=== PATIENT | male | born 1975 | race Caucasian/White ===

== ENCOUNTER 2017-10-24 15:54 | Emergency (ER) | payer MEDICARE, MEDICAID ==
[2017-10-24 16:44] LABS: BASO # 0.1 10^3/uL (0.0-0.2); BASO % 0.8 % (0.0-1.0); EOS # 0.2 10^3/uL (0.0-0.50); EOS % 2.9 % (0.0-3.0); HEMATOCRIT 43.7 % (42.0-52.0); HEMOGLOBIN 15.2 g/dl (13.5-17.5); IMMATURE GRANULOCYTE % 0.4 % (0-3.0); LYMPH # 1.9 10^3/uL (1.5-4.5); LYMPH % 22.9 % (24.0-44.0); MEAN CORPUSCULAR HEMOGLOBIN 31.5 pg (27.0-33.0); MEAN CORPUSCULAR HGB CONC 34.8 g/dl (32.0-36.5); MEAN CORPUSCULAR VOLUME 90.7 fl (80.0-96.0); MONO # 0.8 10^3/uL (0.0-0.8); MONO % 9.2 % (0.0-5.0); NEUTROPHILS # 5.3 10^3/uL (1.8-7.7); NEUTROPHILS % 63.8 % (36.0-66.0); PLATELET COUNT, AUTOMATED 286 10^3/uL (150-450); RED BLOOD COUNT 4.82 10^6/uL (4.30-6.10); RED CELL DISTRIBUTION WIDTH 12.5 % (11.5-14.5); WHITE BLOOD COUNT 8.3 10^3/uL (4.0-10.0)
[2017-10-24] MEDS: KETOROLAC 30 MG/ML VIAL (J1885) IV (16:47)
[2017-10-24] MEDS: NS 1,000 ML IV (16:48)
[2017-10-24 17:05] LABS: ALBUMIN/GLOBULIN RATIO 1.05 (1.00-1.93); ALKALINE PHOSPHATASE 54 U/L (45-117); ALT/SGPT 30 U/L (12-78); ANION GAP 7 MEQ/L (8-16); AST/SGOT 15 U/L (7-37); BILIRUBIN,DIRECT 0.1 MG/DL (0.0-0.2); BILIRUBIN,TOTAL 0.6 MG/DL (0.2-1.0); BLOOD UREA NITROGEN 13 MG/DL (7-18); C REACTIVE PROTEIN QUANTITATIV < 0.30 MG/DL (0.00-0.30); CARBON DIOXIDE LEVEL 27 MEQ/L (21-32); CHLORIDE LEVEL 110 MEQ/L (98-107); CPK CREATINE PHOSPHOKINASE 66 U/L (39-308); CREATININE FOR GFR 1.31 MG/DL (0.70-1.30); GLOMERULAR FILTRATION RATE > 60.0 (>60); GLUCOSE, FASTING 116 MG/DL (70-100); LIPASE 161 U/L (73-393); POTASSIUM SERUM 3.8 MEQ/L (3.5-5.1); SODIUM LEVEL 144 MEQ/L (136-145); TOTAL PROTEIN 7.8 GM/DL (6.4-8.2); TROPONIN I < 0.02 NG/ML (< 0.10)
[2017-10-24 17:11] LABS: CK-MB VALUE MASS < 1.0 NG/ML (<3.6); MB/CK RELATIVE INDEX 1.51 (< OR =4)
[2017-10-24] MEDS: predniSONE 20 MG TAB PO (18:45)
== END 2017-10-24 19:16 | disposition home or self-care (01) ==
LOC: M ED 15:54
DX: J01.10 Acute frontal sinusitis, unspecified (principal); I67.82 Cerebral ischemia; I45.10 Unspecified right bundle-branch block; I10 Essential (primary) hypertension; J44.9 Chronic obstructive pulmonary disease, unspecified; K21.9 Gastro-esophageal reflux disease without esophagitis; Z87.828 Personal history of other (healed) physical injury and trauma; Z79.899 Other long term (current) drug therapy; Z88.5 Allergy status to narcotic agent
CPT/HCPCS: J1885

== ENCOUNTER 2018-01-17 18:29 | Emergency (ER) | payer MEDICARE, MEDICAID | END 2018-01-17 19:41 | disposition home or self-care (01) | LOC: M ED 18:29 | DX: K21.0 Gastro-esophageal reflux disease with esophagitis (principal); G89.29 Other chronic pain; I10 Essential (primary) hypertension; I25.2 Old myocardial infarction; J44.9 Chronic obstructive pulmonary disease, unspecified; Z87.891 Personal history of nicotine dependence; Z98.890 Other specified postprocedural states; Z87.820 Personal history of traumatic brain injury; Z88.5 Allergy status to narcotic agent | CPT/HCPCS: 99282 ==

== ENCOUNTER 2018-05-28 15:04 | Emergency (ER) | payer MEDICARE, MEDICAID ==
[2018-05-28 16:10] LABS: HEMATOCRIT 45.5 % (42.0-52.0); HEMOGLOBIN 14.8 g/dl (13.5-17.5); MEAN CORPUSCULAR HEMOGLOBIN 30.3 pg (27.0-33.0); MEAN CORPUSCULAR HGB CONC 32.5 g/dl (32.0-36.5); PLATELET COUNT, AUTOMATED 308 10^3/uL (150-450); RED BLOOD COUNT 4.89 10^6/uL (4.30-6.10); RED CELL DISTRIBUTION WIDTH 12.7 % (11.5-14.5); WHITE BLOOD COUNT 8.7 10^3/uL (4.0-10.0)
[2018-05-28 16:15] LABS: AMORPHOUS SEDIMENT RFX SMALL (NEGATIVE); KETONE, URINE AUTO RFX NEGATIVE (NEGATIVE); LEUKOCYTE ESTERASE UR AUTO RFX NEGATIVE (NEGATIVE); NITRITE, URINE AUTO RFX NEGATIVE (NEGATIVE); RBC, URINE AUTO RFX 0 /HPF (0-3); SPECIFIC GRAVITY UR AUTO RFX 1.019 (1.002-1.035); SQUAM EPITHELIAL CELL UR AURFX 0 /HPF (0-6); WBC, URINE AUTO RFX 0 /HPF (0-3)
[2018-05-28 16:31] LABS: ALBUMIN 3.9 GM/DL (3.2-5.2); ALBUMIN/GLOBULIN RATIO 1.08 (1.00-1.93); ALKALINE PHOSPHATASE 48 U/L (45-117); ALT/SGPT 24 U/L (12-78); ANION GAP 6 MEQ/L (8-16); AST/SGOT 16 U/L (7-37); BILIRUBIN,TOTAL 0.5 MG/DL (0.2-1.0); BLOOD UREA NITROGEN 13 MG/DL (7-18); CALCIUM LEVEL 8.6 MG/DL (8.5-10.1); CARBON DIOXIDE LEVEL 29 MEQ/L (21-32); CHLORIDE LEVEL 107 MEQ/L (98-107); CREATININE FOR GFR 1.11 MG/DL (0.70-1.30); GLOMERULAR FILTRATION RATE > 60.0 (>60); GLUCOSE, FASTING 96 MG/DL (70-100); POTASSIUM SERUM 4.7 MEQ/L (3.5-5.1); SODIUM LEVEL 142 MEQ/L (136-145); TOTAL PROTEIN 7.5 GM/DL (6.4-8.2)
[2018-05-28 18:54] LABS: CHLAMYDIA DNA AMPLIFICATION NEGATIVE (NEGATIVE); GC DNA AMPLIFICATION NEGATIVE (NEGATIVE)
[2018-05-29 09:41] LABS: HEPATITIS B SURFACE ANTIBODY NEGATIVE (POSITIVE)
[2018-05-29 09:52] LABS: HEPATITIS B SURFACE ANTIGEN NEGATIVE (NEGATIVE)
[2018-05-29 10:21] LABS: HIV 1&2 SCREEN CENTAUR NEGATIVE (NEGATIVE)
[2018-05-29 10:57] LABS: HEPATITIS C VIRUS ABY INDEX > 11.0 INDEX (<0.8)
[2018-06-01 08:09] LABS: HCV RNA NAA QUALITATIVE Negative (Negative)
== END 2018-05-28 17:41 | disposition home or self-care (01) ==
LOC: M ED 15:04
DX: L25.9 Unspecified contact dermatitis, unspecified cause (principal); R42 Dizziness and giddiness; I25.2 Old myocardial infarction; I10 Essential (primary) hypertension; Z87.820 Personal history of traumatic brain injury; J44.9 Chronic obstructive pulmonary disease, unspecified; K21.9 Gastro-esophageal reflux disease without esophagitis; F32.9 Major depressive disorder, single episode, unspecified; Z87.891 Personal history of nicotine dependence; Z79.899 Other long term (current) drug therapy; Z88.5 Allergy status to narcotic agent; Z11.3 Encounter for screening for infections with a predominantly sexual mode of transmission; Z72.89 Other problems related to lifestyle
CPT/HCPCS: 80053

== ENCOUNTER → 2018-09-24 | Outpatient (CLI) | payer MEDICARE, MEDICAID ==
[~2018-09-24] MED LIST: ADV250INH INH; ALBU17IN2 INH; AZEL1SPR3; CLAR5TAB7 PO; IBUP-1114 PO; LOSA100T50 PO; PERC5TAB12 PO; PRED20TA PO; PROT1TAB2 PO
--- NOTE | 2018-09-24 14:24 | REP ---
TWO-VIEW CHEST: REASON: COPD. COMPARISON: 12/30/2013, a portable exam. FINDINGS: The superior mediastinal structures are midline. The cardiac silhouette is unremarkable in size, shape, and position. The diaphragmatic surfaces of the lungs are regular, and the costophrenic angles are clear. The pulmonary delacruz are clear. The imaged osseous structures are intact. IMPRESSION: There is no acute cardiopulmonary disease. Electronically Signed by Ramon Shelby DO 09/24/2018 03:49 P
--- NOTE | 2018-09-24 14:53 | REP ---
REASON: Chronic back pain. COMPARISON: None. FINDINGS: Three views of the sacroiliac joints show them to be non-fused. There is no lysis or sclerosis of either the sacral or iliac side of either SI joints. There is no evidence of whiskering. There is no prominent osteophytosis. IMPRESSION: SI joints within normal limits. Electronically Signed by Ramon Shelby DO 09/24/2018 03:57 P
--- NOTE | 2018-09-24 14:56 | REP ---
REASON: Chronic pain. FINDINGS: No acute fracture or destructive osseous lesion. Electronically Signed by Ramon Shelby DO 09/24/2018 03:58 P
--- NOTE | 2018-09-24 15:01 | REP ---
REASON: Chronic low back pain. COMPARISON: 05/30/2016. There is posterior disc space narrowing at every level status quo. Minimal grade 1 L4 upon L5 spondylolisthesis is again noted with L4 spondylolysis bilaterally again unchanged. The pedicles are intact bilaterally. There has been no acute change from the prior exam. IMPRESSION: Chronic changes as described above. Electronically Signed by Ramon Shelby DO 09/24/2018 04:04 P
--- NOTE | 2018-09-24 15:19 | REP ---
REASON: Back pain. COMPARISON: None. There is evidence of a biconcave endplate deformity seen involving T9 with a mild superior endplate concave deformity involving T8 and T10. Minimal anterior lipping is seen involving all thoracic levels with anterior disc space narrowing. Vertebral body alignment is within normal limits. The pedicles appear to be intact bilaterally. IMPRESSION: Findings as described above. Correlate clinically. Electronically Signed by Ramon Shelby DO 09/24/2018 04:07 P
== END ==
LOC: M RAD 13:15
PROVIDERS: ATTEND Family Medicine
DX: Z87.09 Personal history of other diseases of the respiratory system (principal); M43.16 Spondylolisthesis, lumbar region; M51.34 Other intervertebral disc degeneration, thoracic region

== ENCOUNTER → 2018-10-01 | Outpatient (CLI) | payer MEDICARE, MEDICAID ==
[2018-10-01 11:10] LABS: APPEARANCE, URINE CLEAR (CLEAR); BACTERIA, URINE AUTO NEGATIVE (NEGATIVE); BILIRUBIN, URINE AUTO NEGATIVE (NEGATIVE); BLOOD, URINE BLOOD NEGATIVE (NEGATIVE); COLOR, URINE YELLOW (YELLOW); GLUCOSE, URINE (UA) AUTO NEGATIVE (NEGATIVE); KETONE, URINE AUTO NEGATIVE (NEGATIVE); LEUKOCYTE ESTERASE, URINE AUTO NEGATIVE (NEGATIVE); MUCUS, URINE SMALL (NEGATIVE); NITRITE, URINE AUTO NEGATIVE (NEGATIVE); PROTEIN, URINE AUTO NEGATIVE (NEGATIVE); RBC, URINE AUTO 3 /HPF (0-3); SPECIFIC GRAVITY URINE AUTO 1.021 (1.002-1.035); SQUAMOUS EPITHELIAL CELL UR AU 0 /HPF (0-6); UROBILINOGEN, URINE AUTO 0.2 mg/dL (0.0-2.0); WBC, URINE AUTO 0 /HPF (0-3)
[2018-10-01 11:30] LABS: BASO # 0.1 10^3/uL (0.0-0.2); BASO % 0.8 % (0.0-1.0); EOS # 0.2 10^3/uL (0.0-0.50); EOS % 2.4 % (0.0-3.0); HEMATOCRIT 43.9 % (42.0-52.0); HEMOGLOBIN 14.5 g/dl (13.5-17.5); LYMPH # 1.8 10^3/uL (1.5-4.5); LYMPH % 22.6 % (24.0-44.0); MEAN CORPUSCULAR HEMOGLOBIN 30.7 pg (27.0-33.0); MEAN CORPUSCULAR VOLUME 92.8 fl (80.0-96.0); MONO # 0.8 10^3/uL (0.0-0.8); MONO % 10.3 % (0.0-5.0); NEUTROPHILS % 63.5 % (36.0-66.0); PLATELET COUNT, AUTOMATED 290 10^3/uL (150-450); RED BLOOD COUNT 4.73 10^6/uL (4.30-6.10); WHITE BLOOD COUNT 7.9 10^3/uL (4.0-10.0)
[2018-10-01 12:23] LABS: ALBUMIN 3.9 GM/DL (3.2-5.2); ALT/SGPT 19 U/L (12-78); BILIRUBIN,TOTAL 0.3 MG/DL (0.2-1.0); BLOOD UREA NITROGEN 12 MG/DL (7-18); CALCIUM LEVEL 8.5 MG/DL (8.5-10.1); CARBON DIOXIDE LEVEL 27 MEQ/L (21-32); CHLORIDE LEVEL 110 MEQ/L (98-107); CHOLESTEROL LEVEL 132 MG/DL (<200); CHOLESTEROL RISK RATIO 3.142 (<5); CREATININE FOR GFR 0.88 MG/DL (0.70-1.30); FREE T4 1.02 NG/DL (0.76-1.46); GLOMERULAR FILTRATION RATE > 60.0 (>60); GLUCOSE, FASTING 92 MG/DL (70-100); HDL CHOLESTEROL 42 MG/DL (>40); LDL CHOLESTEROL 63 MG/DL (<100); NON-HDL-C 90 MG/DL; POTASSIUM SERUM 4.1 MEQ/L (3.5-5.1); RHEUMATOID FACTOR QUANT < 10.0 IU/ML (<15.0); SODIUM LEVEL 143 MEQ/L (136-145); TOTAL 25(OH) VITAMIN D 25.9 NG/ML (30.0-100.0); TRIGLYCERIDES LEVEL 134 MG/DL (<150)
[2018-10-01 12:26] LABS: HEMOGLOBIN A1c 5.6 %
[2018-10-01 14:09] LABS: ERYTHROCYTE SEDIMENTATION RATE 8 mm/hr (0-15)
== END ==
LOC: M LAB 10:06
PROVIDERS: ATTEND Family Medicine
DX: I10 Essential (primary) hypertension (principal); M54.5 Low back pain; Z79.899 Other long term (current) drug therapy

== ENCOUNTER 2018-10-05 15:45 | Emergency (ER) | payer MEDICARE, MEDICAID ==
[~2018-10-05] VITALS: Ht 190.5 cm; Wt 112.4 kg
[2018-10-05 15:47] VITALS: BP 119/76
[2018-10-05] MEDS ORDERED: NAPR-837 PO (16:03)
[2018-10-05] MEDS ORDERED: PENI500T PO (16:03)
[2018-10-05] MEDS ORDERED: PENICILLIN V POTASSIUM 500 MG TAB PO ONE (16:15)
[2018-10-05] MEDS ORDERED: NAPROXEN 250 MG TAB PO ONE (16:15)
== END 2018-10-05 16:13 | disposition home or self-care (01) ==
LOC: M ED 15:45
DX: K04.7 Periapical abscess without sinus (principal); K02.9 Dental caries, unspecified; J44.9 Chronic obstructive pulmonary disease, unspecified; I25.2 Old myocardial infarction; Z79.899 Other long term (current) drug therapy; Z88.5 Allergy status to narcotic agent; F17.210 Nicotine dependence, cigarettes, uncomplicated

== ENCOUNTER 2018-10-31 12:55 | Emergency (ER) | payer MEDICARE, MEDICAID ==
[~2018-10-31] VITALS: Ht 190.5 cm; Wt 110.6 kg
[~2018-10-31 12:55] MED LIST changes: +NAPR-837 PO; +PENI500T PO
[2018-10-31] MEDS ORDERED: ONDANSETRON 4 MG ORAL DISINTEGRATING TAB (Q0162 PER 1MG) PO ONE (13:45)
[2018-10-31] MEDS ORDERED: AMOX500C PO (14:30)
[2018-10-31] MEDS ORDERED: VENTAER INH (14:30)
[2018-10-31 14:51] VITALS: BP 137/95
[2018-10-31 17:06] LABS: CHLAMYDIA DNA AMPLIFICATION NEGATIVE (NEGATIVE); GC DNA AMPLIFICATION NEGATIVE (NEGATIVE)
== END 2018-10-31 14:50 | disposition home or self-care (01) ==
LOC: M ED 12:55
DX: J02.0 Streptococcal pharyngitis (principal); J44.9 Chronic obstructive pulmonary disease, unspecified; R06.02 Shortness of breath; K21.9 Gastro-esophageal reflux disease without esophagitis; I10 Essential (primary) hypertension; I25.2 Old myocardial infarction; F32.9 Major depressive disorder, single episode, unspecified; Z88.5 Allergy status to narcotic agent; Z87.891 Personal history of nicotine dependence; Z79.899 Other long term (current) drug therapy; Z79.1 Long term (current) use of non-steroidal anti-inflammatories (NSAID); Z79.51 Long term (current) use of inhaled steroids
CPT/HCPCS: 87491; 87591; 87880; 99284; Q0162

== ENCOUNTER → 2018-12-05 | Outpatient (CLI) | payer MEDICARE, MEDICAID ==
[~2018-12-05] MED LIST changes: +AMOX500C PO; +VENTAER INH
--- NOTE | 2018-12-12 01:08 | ECWPNPC ---
PATIENT NAME: FENRANDO NEWBY : 1975 GENDER: MALE VISIT DATE: 12/05/2018 DISCHARGE DATE: 12/05/18 1601 VISIT LOCKED DATE TIME: PHYSICIAN: JESSICA CUNNINGHAM MD RESOURCE: JESSICA CUNNINGHAM MD REASON FOR APPOINTMENT 1. LOW BACK PAIN HISTORY OF PRESENT ILLNESS PAIN SCREENING: PATIENT HAS A COMPLAINT OF ACUTE OR CHRONIC PAIN :YES 43 YEAR OLD MALE PATIENT WITH A HISTORY OF CHRONIC LOW BACK PAIN. THE PATIENT DESCRIBES THE PAIN ACHING AND NIGHTLY WITH A PAIN SCORE OF 8-10/10 DEPENDING ON PHYSICAL ACTIVITY. THE PATIENT STATES THE PAIN BEGINS IN HIS LOW BACK AND RADIATES DOWN HIS LEGS, BUT MAINLY HIS RIGHT LEG IS AFFECTED. THE PATIENT SAYS HE HAS BEEN SUFFERING WITH THIS PAIN FOR MANY YEARS. THE PATIENT SAYS HE HAS TROUBLE GETTING COMFORTABLE AT NIGHT AND STAYING ASLEEP EACH NIGHT. THE PATIENT MENTIONS HE HAS HAD RIGHT KNEE SURGERY DONE IN THE PAST. THE PATIENT SAYS HE HAS TRIED PHYSICAL THERAPY BEFORE, BUT IT ONLY MADE HIS PAIN WORSE TO THE POINT THAT HE COULDN'T MOVE THE FOLLOWING DAY. THE PATIENT SAYS HE WALKS AND EXERCISES TO THE BEST OF HIS ABILITY WHEN HE IS ABLE TO. THE PATIENT SAYS HE HAS TRIED DULOXETINE AND GABAPENTIN IN THE PAST TO AID IN PAIN RELIEF. PATIENT DENIES UNEXPLAINABLE WEIGHT LOSS, FEVER, CHILLS, NEW CHANGES ON HIS URINARY OR BOWEL CONTROL. FALL RISK SCREENING: SCREENING :NO FALLS REPORTED IN THE LAST YEAR CURRENT MEDICATIONS TAKING LOSARTAN POTASSIUM 100 MG TABLET 1 TABLET ORALLY ONCE A DAY TAKING PROTONIX 40 MG TABLET DELAYED RELEASE 1 TABLET ORALLY ONCE A DAY MEDICATION LIST REVIEWED AND RECONCILED WITH THE PATIENT PAST MEDICAL HISTORY HTN GERD LBP COPD POLYARTHRITIS ALLERGIES MORPHINE SULFATE: ALLERGY TRAMADOL HCL: ALLERGY SEASONAL: ALLERGY SURGICAL HISTORY RIGHT KNEE SURGERY 2016 CHOLECYSTECTOMY 2018 FAMILY HISTORY FATHER: ALIVE, DIAGNOSED WITH HEART DISEASE, HYPERTENSION MOTHER: ALIVE, HEART DISEASE 4 BROTHER(S) , 2 SISTER(S) . 1 SON(S) . 1 SISTER DECEASEDSON HAS ASTHMA. SOCIAL HISTORY GENERAL: TOBACCO USE ARE YOU A:FORMER SMOKER HOW LONG HAS IT BEEN SINCE YOU LAST SMOKED?1-5 YEARS SMOKING CESSATION INFORMATION GIVEN12/05/2018 PAIN CLINIC PFS, CLERGY, PUBLIC HEALTH REFERRALS HAS THE PATIENT BEEN EDUCATED REGARDING HIS/HER PLAN OF CARE?YES HAS THE PATIENT BEEN EDUCATED REGARDING PAIN, THE RISK FOR PAIN, THE IMPORTANCE OF EFFECTIVE PAIN MANAGEMENT, AND THE PAIN ASSESSMENT PROCESS?YES ADVANCE DIRECTIVE ADVANCE DIRECTIVE DISCUSSED WITH PATIENT:YES DECLINED JUDAISM [id number] OTHER LANGUAGE LANGUAGES SPOKEN:YORUBA LEARNING BARRIERS / SPECIAL NEEDS BARRIERS TO LEARNING?YES COMMENTS PT STATES HE HAS A 5TH GRADE EDUCATION, CAN READ A LITTLE AND WRITE A LITTLE HEARING IMPAIRED?NO VISION IMPAIRED?NO COGNITIVELY IMPAIRED?NO READINESS TO LEARN?YES LEARNING PREFERENCES?NO LEARNING CAPABILITIES PRESENT?YES SPECIAL DEVICES?NO HOSPITALIZATION/MAJOR DIAGNOSTIC PROCEDURE SURGERY REVIEW OF SYSTEMS REVIEWED BY: PROVIDER: JESSICA CUNNINGHAM MD . CONSTITUTIONAL: ANY CHANGE IN YOUR MEDICAL CONDITION? NO . CHILLS NO . FEVER NO . INFECTION: DO YOU HAVE NEW INFECTIONS? NO . DO YOU HAVE HISTORY OF MRSA? NO . MUSCULOSKELETAL: ANY NEW PATTERNS OF PAIN OR NUMBNESS? NO . SYTEMIC LUPUS NO . GASTROENTEROLOGY: ANY NEW CHANGE IN BOWEL CONTROL? NO . BARRETTS ESOPHAGUS NO . CIRRHOSIS NO . HEPATITIS NO . LIVER FAILURE NO . ACID REFLUX YES . UNEXPLAINED WEIGHT LOSS NO . GENITOURINARY: ANY NEW CHANGE IN BLADDER CONTROL? NO . IS THERE A CHANCE YOU COULD BE ? NO . HEMATOLOGY/LYMPH: DO YOU TAKE ANY BLOOD THINNERS? (FOR EXAMPLE- COUMADIN, PLAVIX, AGGRENOX, PLATEL, PRADAXA, OR XARELTO) NO . WHEN WAS YOUR LAST DOSE? DATE: TIME: . LOW PLATELET COUNT NO . SICKLE CELL DISEASE NO . VON WILLIEBRANDS NO . FACTOR V LEIDEN NO . THALLASEMIA NO . ANEMIA NO . EASY BRUISING NO . NEUROLOGY: HAVE YOU FALLEN IN THE PAST 12 MONTHS? NO . ANY NEW EXTREMITY NUMBNESS OR WEAKNESS? NO . HEAD INJURY NO . DEMENTIA NO . CEREBRAL PALSY NO . MULTIPLE SCLEROSIS NO . DIZZINESS NO . HEADACHE NO . STROKES NO . VERTIGO NO . CARDIOLOGY: DO YOU HAVE A PACEMAKER OR DEFIBRILLATOR? NO . ANGINA NO . HEART ATTACK NO . HEART SURGERY NO . CONGESTIVE HEART FAILURE/FLUID OVERLOAD NO . CHEST PAIN NO . HIGH BLOOD PRESSURE ON MEDICATION(S) . IRREGULAR HEART BEAT NO . RESPIRATORY: HAVE YOU BEEN SICK IN THE PAST WEEK? NO . FEVER NO . FLU LIKE SYMPTOMS? NO . CPAP NO . BYPAP NO . ASTHMA NO . EMPHYSEMA NO . CHRONIC LUNG DISEASES YES, COPD . SHORTNESS OF BREATH ON EXERTION NO . COUGH YES, PRODUCTIVE YELLOW MUCOUS, HAS HAD FOR YEARS, PT SEES DR JENNINGS WHO IS AWARE OF COUGH . SNORING NO . INTEGUMENTARY: DO YOU HAVE ANY RASHES OR OPEN SORES? NO . ALLERGIC/IMMUNO: ARE YOU ALLERGIC TO IV DYE? NO . ANY NEW ALLERGIES? NO . PSYCHIATRIC: DO YOU HAVE THOUGHTS OF HURTING YOURSELF OR SOMEONE ELSE? NO . ARE YOU ABUSED, NEGLECTED, OR IN AN UNSAFE ENVIRONMENT? NO . ENDOCRINOLOGY: ARE YOU DIABETIC? NO . THYROID DISORDER NO . OTHER: DO YOU NEED ANY PRESCRIPTIONS? YES, ASKING FOR PERCOSET 10 . IF YES, PLEASE LIST: ____ . ANY NEW PROBLEMS WITH YOUR MEDICATIONS? NO . WHEN DID YOU LAST EAT? ____ . WHEN DID YOU LAST DRINK? ____ . WHAT DID YOU LAST DRINK? ____ . NAME OF PERSON DRIVING YOU HOME? ____ . DO YOU HAVE ANY OTHER QUESTIONS OR CONCERNS NO . VITAL SIGNS WT 249.4 LBS, HT 63 IN, BMI 44.17 INDEX, BP 109/61 MM HG, HR 94 /MIN, RR 18 /MIN, TEMP 96.7 F, OXYGEN SAT % 97%, NA INITIALS AW 1427, REVIEWED BY: EM. EXAMINATION GENERAL EXAMINATION: PATIENT IS ALERT O X 3 AND COOPERATIVE. ANTALGIC GAIT. LIMPING FROM THE RIGHT LEG. RIGHT LEG IS WEAKER AT EXTENSION AND FLEXION. STRAIGHT LEG RAISE OF THE RIGHT LEG IS POSITIVE AT 30 DEGREES FOR RADICULOPATHY. TENDERNESS IN THE LOW BACK PRESENCES OF BANDS OF TISSUE AND TRIGGER POINTS WITH RESTRICTION OF MOVEMENT OF THE LOW BACK. X-RAY OF THE LUMBAR SPINE DONE ON 09/24/2018 SHOWS SPONDYLOLISTHESIS AT L4-L5 LEVELS. ASSESSMENTS LUMBAGO WITH SCIATICA, UNSPECIFIED SIDE - M54.40 (PRIMARY) OTHER CHRONIC PAIN - G89.29 MYALGIA, OTHER SITE - M79.18 SPONDYLOSIS OF LUMBAR REGION WITHOUT MYELOPATHY OR RADICULOPATHY - M47.816 SPONDYLOSIS OF LUMBOSACRAL REGION WITHOUT MYELOPATHY OR RADICULOPATHY - M47.817 TREATMENT LUMBAGO WITH SCIATICA, UNSPECIFIED SIDE CLINICAL NOTES: WE DISCUSSED SEVERAL ISSUES WITH MR. NEWBY'S PAIN MANAGEMENT CASE. I DISCUSSED WITH THE PATIENT THAT HE IS A GOOD CANDIDATE FOR TRIGGER POINT INJECTIONS, HOWEVER AT THIS TIME THE PATIENT IS NOT INTERESTED IN INTERVENTIONAL MANAGEMENT, DUE TO BAD EXPERIENCES IN THE PAST. I AM REFERRING THE PATIENT TO [facility]'S PALLIATIVE CARE PROGRAM FOR MEDICATION MANAGEMENT. I WILL START THE PATIENT ON TIZANIDINE 2 MG 1-2 TABLETS NIGHTLY FOR SPASTICITY AND PAIN. I ALSO STARTED THE PATIENT ON GABAPENTIN 100 MG AND PROVIDED A SCHEDULE FOR HIM TO FOLLOW TO SLOWLY BUILD UP TO 3 TABLETS DAILY, IN ORDER TO AVOID ANY ADVERSE SIDE EFFECTS. THE PATIENT WILL FOLLOW UP WITH THE NURSE PRACTITIONER IN ONE MONTH. WE WILL FOLLOW HIM AT OUR FACILITY UNTIL THE PATIENT IS ADMITTED AT THE PALIATIVE CARE PROGRAM. THE PATIENT UNDERSTOOD. INSTRUCTIONS WERE GIVEN, QUESTIONS WERE ANSWERED, PATIENT REPORTS UNDERSTANDING AND AGREES WITH THE PLAN. I, JOE VARGHESE, DOCUMENTED THE ABOVE INFORMATION ACTING A SCRIBE FOR DR. CUNNINGHAM. I HAVE REVIEWED THE ABOVE DOCUMENT, WRITTEN BY JOE VARGHESE SCRIBRadha AND I VERIFY THAT IT IS ACCURATE. DEAR DR. ONEIL JENNINGS: THANK YOU FOR YOUR KIND REFERRAL OF FERNANDO NEWBY. IF YOU WANT TO DISCUSS HIS CASE WITH ME PLEASE CALL ME AT THE PAIN CENTER AT [phone]. SINCERELY, JESSICA CUNNINGHAM MD PAIN MEDICINE . OTHERS START TIZANIDINE HCL TABLET, 2 MG, 1 TABLET NEEDED, ORALLY FOR SPASMS AND PAIN, BEFORE BEDTIME MAY REPEAT IN 5 HRS MDD2, 30 DAYS, 50, REFILLS 1 START GABAPENTIN CAPSULE, 100 MG, 1 CAPSULE, ORALLY, THREE TIMES DAILY, 30 DAY(S), 90, REFILLS 1 PREVENTIVE MEDICINE PAIN CLINIC TEACHING: MEDICATIONS INFORMATIONAL HANDOUTS FOR GABAPENTIN AND TIZANIDINE PRINTED AND REVIEWED WITH PATIENT. [facility] 12/05/18 1557. PROCEDURE CODES FA211 ESTABILISHED PATIENT [facility] FACILITY CHARGE G8427 CURRENT MEDS W/DOSAGES DOCUMENTED G8730 PAIN ASSESS POS TOOL F/U PLAN DOC DISPOSITION & COMMUNICATION FOLLOW UP 4 WEEKS (REASON: MEDS, F/U WITH AQUATIC SCIENTIST) ELECTRONICALLY SIGNED BY JESSICA CUNNINGHAM MD, MD ON 12/11/2018 AT 01:29 PM EDT DISCLAIMER : THIS IS A VISIT SUMMARY EXTRACTED FROM THE [employer] CHART. IT IS NOT A COPY OF THE [employer] PROGRESS NOTE. MTDD
== END ==
LOC: M PAIN 14:45
PROVIDERS: ATTEND Anesthesiology
DX: G89.29 Other chronic pain (principal); M54.40 Lumbago with sciatica, unspecified side; M79.18 Myalgia, other site; M47.816 Spondylosis without myelopathy or radiculopathy, lumbar region; M47.817 Spondylosis without myelopathy or radiculopathy, lumbosacral region; I10 Essential (primary) hypertension; J30.9 Allergic rhinitis, unspecified; K21.9 Gastro-esophageal reflux disease without esophagitis; M13.0 Polyarthritis, unspecified; J44.9 Chronic obstructive pulmonary disease, unspecified; Z87.891 Personal history of nicotine dependence; Z79.899 Other long term (current) drug therapy; Z88.5 Allergy status to narcotic agent

== ENCOUNTER → 2019-04-29 | Outpatient (REF) | payer OTHER, MEDICAID ==
[~2019-04-29] MED LIST changes: -ALBU17IN2 INH; +PROV108A INH
[2019-04-29 19:49] LABS: APPEARANCE, URINE CLEAR (CLEAR); BACTERIA, URINE AUTO NEGATIVE (NEGATIVE); BILIRUBIN, URINE AUTO NEGATIVE (NEGATIVE); BLOOD, URINE BLOOD NEGATIVE (NEGATIVE); COLOR, URINE YELLOW (YELLOW); GLUCOSE, URINE (UA) AUTO NEGATIVE (NEGATIVE); KETONE, URINE AUTO TRACE mg/dL (NEGATIVE); LEUKOCYTE ESTERASE, URINE AUTO NEGATIVE (NEGATIVE); NITRITE, URINE AUTO NEGATIVE (NEGATIVE); PROTEIN, URINE AUTO NEGATIVE (NEGATIVE); RBC, URINE AUTO 1 /HPF (0-3); SPECIFIC GRAVITY URINE AUTO 1.018 (1.002-1.035); SQUAMOUS EPITHELIAL CELL UR AU 0 /HPF (0-6); UROBILINOGEN, URINE AUTO 0.2 mg/dL (0.0-2.0); WBC, URINE AUTO 0 /HPF (0-3)
== END ==
LOC: M LAB REF 18:40
PROVIDERS: ATTEND Nurse Practitioner Family
DX: R35.0 Frequency of micturition (principal)

== ENCOUNTER 2019-07-01 13:40 | Emergency (ER) | payer OTHER, MEDICAID ==
[~2019-07-01] VITALS: Ht 190.5 cm; Wt 109.1 kg
[2019-07-01] MEDS ORDERED: NEXI10GR PO (13:46)
[2019-07-01] MEDS ORDERED: OXYC10TA12 (13:46)
[2019-07-01] MEDS ORDERED: LISI-538 (13:46)
[2019-07-01 15:47] LABS: CHLAMYDIA DNA AMPLIFICATION NEGATIVE (NEGATIVE); GC DNA AMPLIFICATION NEGATIVE (NEGATIVE)
[2019-07-01 21:38] VITALS: BP 121/73
[2019-07-02 11:04] LABS: HEPATITIS B SURFACE ANTIBODY NEGATIVE (POSITIVE); HEPATITIS B SURFACE ANTIGEN NEGATIVE (NEGATIVE); HIV 1&2 SCREEN CENTAUR NEGATIVE (NEGATIVE)
[2019-07-02 11:08] LABS: HEPATITIS C VIRUS ABY INDEX > 11.0 INDEX (<0.8)
== END 2019-07-01 21:40 | disposition home or self-care (01) ==
LOC: M ED 13:40
DX: Z20.2 Contact with and (suspected) exposure to infections with a predominantly sexual mode of transmission (principal); I10 Essential (primary) hypertension; J44.9 Chronic obstructive pulmonary disease, unspecified; K21.9 Gastro-esophageal reflux disease without esophagitis; Z79.899 Other long term (current) drug therapy; Z88.5 Allergy status to narcotic agent

== ENCOUNTER → 2019-07-23 | Outpatient (REF) | payer MEDICARE, MEDICAID ==
[~2019-07-23] MED LIST changes: +LISI-538; +NEXI10GR PO; +OXYC10TA12
[2019-07-25 10:18] LABS: HEPATITIS C VIRUS ABY INDEX > 11.0 INDEX (<0.8)
[2019-07-29 00:06] LABS: HEPATITIS C QUANTITATION HCV Not Detected IU/mL (.)
== END ==
LOC: M LAB REF 18:50
PROVIDERS: ATTEND Physician Assistant
DX: Z86.19 Personal history of other infectious and parasitic diseases (principal); R35.0 Frequency of micturition
CPT/HCPCS: 86803; 87521; 87522; 87902; G0103

== ENCOUNTER → 2020-01-23 | Outpatient (REF) | payer MEDICARE, MEDICAID ==
[2020-03-19 17:36] LABS: ALT/SGPT 18 U/L (12-78); BILIRUBIN,TOTAL 0.4 MG/DL (0.2-1.0); BLOOD UREA NITROGEN 19 MG/DL (7-18); CALCIUM LEVEL 8.5 MG/DL (8.5-10.1); CARBON DIOXIDE LEVEL 24 MEQ/L (21-32); CHLORIDE LEVEL 109 MEQ/L (98-107); CHOLESTEROL LEVEL 132 MG/DL (<200); CHOLESTEROL RISK RATIO 3.473 (<5); CREATININE FOR GFR 1.09 MG/DL (0.70-1.30); GLOMERULAR FILTRATION RATE > 60.0 (>60); GLUCOSE, FASTING 101 MG/DL (70-100); HDL CHOLESTEROL 38 MG/DL (>40); HIV 1&2 SCREEN CENTAUR NEGATIVE (NEGATIVE); LDL CHOLESTEROL 64 MG/DL (<100); NON-HDL-C 94 MG/DL; SODIUM LEVEL 140 MEQ/L (136-145); TOTAL PROTEIN 7.3 GM/DL (6.4-8.2); TRIGLYCERIDES LEVEL 148 MG/DL (<150)
== END ==
LOC: M LAB REF 09:06
PROVIDERS: ATTEND Family Medicine Addiction Medicine
DX: Z20.2 Contact with and (suspected) exposure to infections with a predominantly sexual mode of transmission (principal); E07.9 Disorder of thyroid, unspecified; E78.00 Pure hypercholesterolemia, unspecified

== ENCOUNTER → 2020-02-20 | Outpatient (REF) | payer MEDICARE, MEDICAID | LOC: M LAB REF 17:05 | PROVIDERS: ATTEND Family Medicine Addiction Medicine | DX: Z20.2 Contact with and (suspected) exposure to infections with a predominantly sexual mode of transmission (principal) ==

== ENCOUNTER → 2020-05-14 | Outpatient (CLI) | payer MEDICARE, MEDICAID ==
[~2020-05-14] MED LIST changes: +ISOVUE-370 76% 100ML VIAL As Ordered ONE
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
== END ==
LOC: M RAD 09:28
PROVIDERS: ATTEND Physician Assistant
DX: J84.10 Pulmonary fibrosis, unspecified (principal)
CPT/HCPCS: 71260; Q9967

== ENCOUNTER 2020-10-15 11:15 | Emergency (ER) | payer MEDICARE, MEDICAID ==
[~2020-10-15] VITALS: Ht 190.5 cm; Wt 114.4 kg
[~2020-10-15 11:15] MED LIST changes: -ISOVUE-370 76% 100ML VIAL As Ordered ONE; -LISI-538; +LISI20TA33
--- NOTE | 2020-10-15 13:21 | REP ---
INDICATION: pain over mid foot. COMPARISON: None. TECHNIQUE: Four views of the right foot are provided. FINDINGS: Four views of the right foot demonstrate normal bones, joints, and soft tissues. No fracture or subluxation is seen. No opaque foreign body noted. IMPRESSION: Negative right foot series. <Electronically signed by Bert Maradiaga > 10/15/20 [id number]
[2020-10-15 13:37] LABS: BASO # 0.1 10^3/uL (0.0-0.2); BASO % 0.5 % (0.0-1.0); EOS # 0.3 10^3/uL (0.0-0.5); EOS % 2.5 % (0.0-3.0); HEMATOCRIT 45.1 % (42.0-52.0); HEMOGLOBIN 14.5 g/dl (13.5-17.5); LYMPH # 1.9 10^3/uL (1.5-5.0); MEAN CORPUSCULAR HEMOGLOBIN 30.1 pg (27.0-33.0); MEAN CORPUSCULAR HGB CONC 32.2 g/dl (32.0-36.5); MEAN CORPUSCULAR VOLUME 93.6 fl (80.0-96.0); MONO # 1.3 10^3/uL (0.0-0.8); MONO % 12.4 % (2.0-8.0); NEUTROPHILS # 6.6 10^3/uL (1.5-8.5); PLATELET COUNT, AUTOMATED 287 10^3/uL (150-450); RED BLOOD COUNT 4.82 10^6/uL (4.30-6.10); WHITE BLOOD COUNT 10.1 10^3/uL (4.0-10.0)
[2020-10-15 14:01] LABS: BLOOD UREA NITROGEN 13 MG/DL (7-18); CALCIUM LEVEL 8.9 MG/DL (8.5-10.1); CARBON DIOXIDE LEVEL 30 MEQ/L (21-32); CHLORIDE LEVEL 104 MEQ/L (98-107); CREATININE FOR GFR 1.13 MG/DL (0.70-1.30); GLOMERULAR FILTRATION RATE > 60.0 (>60); GLUCOSE, FASTING 98 MG/DL (70-100); POTASSIUM SERUM 4.6 MEQ/L (3.5-5.1); SODIUM LEVEL 139 MEQ/L (136-145); URIC ACID 6.6 MG/DL (3.5-7.2)
[2020-10-15] MEDS ORDERED: NAPR-837 PO (14:22)
[2020-10-15 14:30] VITALS: BP 142/92
== END 2020-10-15 14:30 | disposition home or self-care (01) ==
LOC: M ED 11:15
DX: M65.271 Calcific tendinitis, right ankle and foot (principal); J44.9 Chronic obstructive pulmonary disease, unspecified; K21.9 Gastro-esophageal reflux disease without esophagitis; G89.29 Other chronic pain; M54.9 Dorsalgia, unspecified; Z79.899 Other long term (current) drug therapy; Z88.5 Allergy status to narcotic agent; F17.210 Nicotine dependence, cigarettes, uncomplicated

== ENCOUNTER 2021-05-12 18:46 | Inpatient (IN) | payer MEDICARE, MEDICAID ==
[~2021-05-12] VITALS: Ht 188 cm; Wt 115.0 kg
[~2021-05-12 18:46] MED LIST changes: -LISI20TA33; +LISI20TA33 PO; +LOSA100T45 PO; -LOSA100T50 PO; -OXYC10TA12; +OXYC10TA12 PO
[2021-05-12] MEDS ORDERED: diphenhydrAMINE 50MG/ML VIAL (J1200) IM ONE (20:05)
[2021-05-12] MEDS ORDERED: LORazepam 2 MG/ML VIAL IM ONE (20:05)
[2021-05-12] MEDS ORDERED: HALOPERIDOL 5MG/ML VIAL (J1630 PER 1) IM ONE (20:05)
[2021-05-12 21:32] LABS: HEMATOCRIT 51.3 % (42.0-52.0); HEMOGLOBIN 16.9 g/dl (13.5-17.5); MEAN CORPUSCULAR HEMOGLOBIN 30.5 pg (27.0-33.0); MEAN CORPUSCULAR HGB CONC 32.9 g/dl (32.0-36.5); MEAN CORPUSCULAR VOLUME 92.6 fl (80.0-96.0); PLATELET COUNT, AUTOMATED 432 10^3/uL (150-450); RED BLOOD COUNT 5.54 10^6/uL (4.30-6.10); WHITE BLOOD COUNT 22.4 10^3/uL (4.0-10.0)
[2021-05-12 21:55] LABS: AMPHETAMINES LEVEL URINE NEGATIVE (NEGATIVE); BARBITURATES URINE NEGATIVE (NEGATIVE); BENZODIAZEPINES URINE NEGATIVE (NEGATIVE); CANNABINOIDS URINE POSITIVE (NEGATIVE); COCAINE METABOLITE URINE NEGATIVE (NEGATIVE); METHADONE URINE NEGATIVE (NEGATIVE); OPIATES URINE NEGATIVE (NEGATIVE); PHENCYCLIDINE URINE NEGATIVE (NEGATIVE)
[2021-05-12 22:10] LABS: ACETAMINOPHEN LEVEL < 2.0 UG/ML (10.0-30.0); ALBUMIN 4.7 GM/DL (3.2-5.2); ALT/SGPT 34 U/L (12-78); BILIRUBIN,DIRECT 0.4 MG/DL (0.0-0.2); BILIRUBIN,TOTAL 1.2 MG/DL (0.2-1.0); BLOOD UREA NITROGEN 20 MG/DL (7-18); CALCIUM LEVEL 9.4 MG/DL (8.5-10.1); CARBON DIOXIDE LEVEL 20 MEQ/L (21-32); CHLORIDE LEVEL 99 MEQ/L (98-107); CREATININE FOR GFR 1.37 MG/DL (0.70-1.30); ETHYL ALCOHOL (ETHANOL) 0.003 % (0.000-0.010); GLOMERULAR FILTRATION RATE > 60.0 (>60); GLUCOSE, FASTING 83 MG/DL (70-100); POTASSIUM SERUM 4.1 MEQ/L (3.5-5.1); SALICYLATE LEVEL < 1.7 MG/DL (5.0-30.0); SODIUM LEVEL 135 MEQ/L (136-145); TOTAL PROTEIN 9.1 GM/DL (6.4-8.2)
[2021-05-12 22:15] LABS: RSV AMPLIFICATION NEGATIVE (NEGATIVE)
[2021-05-13] MEDS ORDERED: ACETAMINOPHEN TAB 650MG DOSE (2X325MG) PO ONE (08:20)
[2021-05-13] MEDS ORDERED: OMEPRAZOLE 20MG CAP PO ONE (13:25)
[2021-05-13] MEDS ORDERED: PERCOCET 5MG/325MG TAB PO ONE (19:30)
[2021-05-14] MEDS ORDERED: PERCOCET 5MG/325MG TAB PO ONE (03:35)
[2021-05-14] MEDS ORDERED: GABA-282 PO (05:56)
[2021-05-14] MEDS ORDERED: HOME MED LIST COMPLETE! XX SCH (06:00)
[2021-05-14] MEDS: oxyCODONE 5MG TAB PO PRN ×3 (08:21→21:51)
[2021-05-14] MEDS: FAMOTIDINE 20 MG TAB PO SCH (08:21)
[2021-05-14] MEDS ORDERED: NEOSPORIN TOP OINT 15GM TOP ONE (14:10)
[2021-05-15] MEDS: FAMOTIDINE 20 MG TAB PO SCH ×2 (08:31→08:35)
[2021-05-15] MEDS: oxyCODONE 5MG TAB PO PRN ×3 (08:31→22:19)
[2021-05-15] MEDS ORDERED: GABAPENTIN 300 MG CAP PO SCH (09:00)
[2021-05-15] MEDS ORDERED: OLANZapine ORAL DISINTEGRATING TAB 5MG PO ONE (09:30)
[2021-05-16] MEDS: oxyCODONE 5MG TAB PO PRN ×3 (09:16→22:25)
[2021-05-16] MEDS ORDERED: MAALOX 30 ML SUSP *UDC PO ONE (12:30)
[2021-05-16] MEDS ORDERED: traZODone 50 MG TAB PO PRN (14:30)
[2021-05-16] MEDS ORDERED: ACETAMINOPHEN TAB 650MG DOSE (2X325MG) PO PRN (14:30)
[2021-05-16] MEDS ORDERED: MOM 30ML SUSPENSION UDC PO PRN (14:30)
[2021-05-16] MEDS ORDERED: LORazepam 2 MG TAB PO PRN (14:30)
[2021-05-16] MEDS ORDERED: MAALOX 30 ML SUSP *UDC PO PRN (14:30)
[2021-05-16] MEDS: GABAPENTIN 300 MG CAP PO SCH ×2 (16:00→22:26)
[2021-05-17 06:57] VITALS: BP 136/87
[2021-05-17] MEDS: oxyCODONE 5MG TAB PO PRN ×3 (08:34→22:04)
[2021-05-17] MEDS: GABAPENTIN 300 MG CAP PO SCH ×3 (09:00→21:00)
[2021-05-17] MEDS ORDERED: NICOTINE 14 MG/24 HR TRANSDERMAL TD PRN (10:50)
[2021-05-17 16:22] VITALS: BP 129/85
[2021-05-18 06:58] VITALS: BP 121/75
[2021-05-18] MEDS: GABAPENTIN 300 MG CAP PO SCH ×3 (09:00→21:00)
[2021-05-18] MEDS: oxyCODONE 5MG TAB PO PRN ×3 (09:02→22:11)
[2021-05-18] MEDS ORDERED: ALBUTEROL 90 MCG/ACT 8GM HFA INHALER INH PRN (12:30)
[2021-05-18] MEDS: PANTOPRAZOLE 20 MG TAB PO SCH (14:25)
[2021-05-18 20:16] VITALS: BP 133/81
[2021-05-19] MEDS: PANTOPRAZOLE 20 MG TAB PO SCH (06:54)
[2021-05-19] MEDS: GABAPENTIN 300 MG CAP PO SCH (09:00)
[2021-05-19 09:26] VITALS: BP 158/98
[2021-05-19] MEDS: oxyCODONE 5MG TAB PO PRN (09:29)
[2021-05-19] MEDS ORDERED: NICO14PA TD (10:48)
[2021-05-19] MEDS ORDERED: PANT20TA6 PO (10:48)
[2021-05-25] MEDS ORDERED: ALBU8.5H INH (12:08)
[2021-05-25] MEDS ORDERED: FAMO40TA3 PO (12:08)
== END 2021-05-19 13:22 | disposition home or self-care (01) | DRG 896 ==
LOC: M ED 18:46 → M ED INP 05-16 14:30 → M PSY 05-16 18:45
PROVIDERS: ADMIT Student in an Organized Health Care Education/Training Program; ATTEND Student in an Organized Health Care Education/Training Program
DX: F12.150 Cannabis abuse with psychotic disorder with delusions (principal); U07.1 COVID-19; F17.210 Nicotine dependence, cigarettes, uncomplicated; Z87.820 Personal history of traumatic brain injury; Z63.0 Problems in relationship with spouse or partner; Z78.1 Physical restraint status; I10 Essential (primary) hypertension; J44.9 Chronic obstructive pulmonary disease, unspecified; M79.671 Pain in right foot; M79.672 Pain in left foot; Z91.51 Personal history of suicidal behavior; Z79.899 Other long term (current) drug therapy; Z88.5 Allergy status to narcotic agent; Z88.8 Allergy status to other drugs, medicaments and biological substances; Z91.14 Patient's other noncompliance with medication regimen; R20.8 Other disturbances of skin sensation

== ENCOUNTER 2021-05-26 13:31 | Day surgery (SDC) | payer MEDICARE, MEDICAID ==
[~2021-05-26] VITALS: Ht 190.5 cm; Wt 108.9 kg
[~2021-05-26 13:31] MED LIST changes: -CEPH500C PO; +LIDOCAINE 1% MDV 20ML VIAL SQ PRN; +LR 1,000 ML IV ONE; +ceFAZolin SOD 2 GM in IV 1 EA IV ONE
[2021-05-26] MEDS ORDERED: CEPH500C PO (13:58)
[2021-05-26] MEDS ORDERED: LIDOCAINE 1% SDV 30ML VIAL As Ordered ONE (15:27)
[2021-05-26] MEDS ORDERED: BUPIVACAINE HCL 0.25% 30ML VIAL As Ordered ONE (15:27)
[2021-05-26] MEDS ORDERED: BACITRACIN OINTMENT 30GM TUBE As Ordered ONE (15:27)
[2021-05-26] MEDS ORDERED: MIDAZOLAM INJ 2MG/2ML VIAL (J2250 PER 1MG) As Ordered ONE (15:58)
[2021-05-26] MEDS ORDERED: ETOMIDATE INJ 20MG/10ML VIAL As Ordered ONE (15:58)
[2021-05-26] MEDS ORDERED: propofoL 200 MG/20 ML VIAL As Ordered ONE (15:58)
[2021-05-26] MEDS ORDERED: fentaNYL 100 MCG/2 ML INJECTION (J3010) As Ordered ONE (15:58)
[2021-05-26] MEDS ORDERED: ONDANSETRON 4MG/2ML VIAL IV PRN (18:05)
[2021-05-26] MEDS ORDERED: PERCOCET 5MG/325MG TAB PO PRN (18:05)
[2021-05-26] MEDS ORDERED: LR 1,000 ML IV SCH (18:05)
[2021-05-26] MEDS ORDERED: METOCLOPRAMIDE INJ 10MG/2ML VIAL (J2765 PER 1) IV PRN (18:05)
[2021-05-26 18:20] VITALS: BP 127/84
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
== END 2021-05-26 19:57 | disposition home or self-care (01) ==
LOC: M SDC 13:31
PROVIDERS: ATTEND Urology
DX: A63.0 Anogenital (venereal) warts (principal); I10 Essential (primary) hypertension; I25.2 Old myocardial infarction; M19.90 Unspecified osteoarthritis, unspecified site; M54.9 Dorsalgia, unspecified; J44.9 Chronic obstructive pulmonary disease, unspecified; Z86.711 Personal history of pulmonary embolism; R40.0 Somnolence; Z87.891 Personal history of nicotine dependence; Z88.5 Allergy status to narcotic agent; Z79.899 Other long term (current) drug therapy; Z79.2 Long term (current) use of antibiotics; Z79.891 Long term (current) use of opiate analgesic
CPT/HCPCS: 54055; 54060; 71046; 88305; J0690; J2250; J3010

== ENCOUNTER → 2021-05-26 | Outpatient (CLI) | payer MEDICARE, MEDICAID ==
[~2021-05-26] MED LIST changes: +ALBU8.5H INH; +CEPH500C PO; +FAMO40TA3 PO; +GABA-282 PO; -LOSA100T45 PO; +LOSA100T50 PO; +NICO14PA TD; +PANT20TA6 PO
--- NOTE | 2021-05-26 13:53 | REP ---
INDICATION: ANOGENITAL (VENEREAL) WARTS/ PT NEEDS W/C TO [facility] COMPARISON: 09/24/2018 TECHNIQUE: PA and lateral. FINDINGS: The mediastinum and cardiac silhouette are normal. The lung delacruz are clear and without acute consolidation, effusion, or pneumothorax. The skeletal structures are intact and normal. IMPRESSION: No acute cardiopulmonary process. <Electronically signed by Forest Patel > 05/26/21 [id number]
== END ==
LOC: M RAD 13:18
PROVIDERS: ATTEND Urology
DX: A63.0 Anogenital (venereal) warts (principal)

== ENCOUNTER 2022-05-28 11:19 | Emergency (ER) | payer MEDICARE, MEDICAID ==
[~2022-05-28] VITALS: Ht 190.5 cm; Wt 112.2 kg
[~2022-05-28 11:19] MED LIST changes: +ALBU6.7H6 INH; +CEPH500C PO; -LIDOCAINE 1% MDV 20ML VIAL SQ PRN; +LOSA100T45 PO; -LOSA100T50 PO; -LR 1,000 ML IV ONE; -PROV108A INH; -ceFAZolin SOD 2 GM in IV 1 EA IV ONE
[2022-05-28 13:50] LABS: BASO % 0.4 % (0.0-1.0); EOS # 0.1 10^3/uL (0.0-0.5); EOS % 0.8 % (0.0-3.0); HEMATOCRIT 44.8 % (42.0-52.0); HEMOGLOBIN 14.7 g/dl (13.5-17.5); LYMPH # 0.7 10^3/uL (1.5-5.0); LYMPH % 9.8 % (24.0-44.0); MEAN CORPUSCULAR HEMOGLOBIN 30.7 pg (27.0-33.0); MEAN CORPUSCULAR HGB CONC 32.8 g/dl (32.0-36.5); MEAN CORPUSCULAR VOLUME 93.5 fl (80.0-96.0); MONO # 0.9 10^3/uL (0.0-0.8); MONO % 12.8 % (2.0-8.0); NEUTROPHILS # 5.6 10^3/uL (1.5-8.5); NEUTROPHILS % 76.1 % (36.0-66.0); PLATELET COUNT, AUTOMATED 221 10^3/uL (150-450); RED BLOOD COUNT 4.79 10^6/uL (4.30-6.10); WHITE BLOOD COUNT 7.3 10^3/uL (4.0-10.0)
[2022-05-28] MEDS ORDERED: ISOVUE-370 76% 100ML VIAL As Ordered ONE (13:57)
[2022-05-28 14:17] LABS: ERYTHROCYTE SEDIMENTATION RATE 18 mm/hr (0-15)
[2022-05-28 14:21] LABS: BLOOD UREA NITROGEN 8 MG/DL (9-23); CALCIUM LEVEL 8.9 MG/DL (8.5-10.1); CARBON DIOXIDE LEVEL 24 MMOL/L (20-31); CHLORIDE LEVEL 104 MMOL/L (98-107); CREATININE FOR GFR 0.88 MG/DL (0.70-1.30); GLOMERULAR FILTRATION RATE > 60.0 (>60); GLUCOSE, FASTING 90 MG/DL (60-100); POTASSIUM SERUM 4.2 MMOL/L (3.5-5.1); SODIUM LEVEL 138 MMOL/L (136-145)
[2022-05-28] MEDS ORDERED: AMOX875T2 PO (14:34)
[2022-05-28] MEDS ORDERED: KETOROLAC 30 MG/ML 1ML VIAL IV ONE (14:35)
[2022-05-28] MEDS ORDERED: AMPICILLIN SOD/SULBACTAM SOD 3 GM in D5W MINI-BAG PLUS 100 ML IV ONE (14:35)
[2022-05-28 15:28] VITALS: BP 141/91
== END 2022-05-28 15:29 | disposition home or self-care (01) ==
LOC: M ED 11:19
DX: J09.X2 Influenza due to identified novel influenza A virus with other respiratory manifestations (principal); K11.8 Other diseases of salivary glands; I10 Essential (primary) hypertension; I25.2 Old myocardial infarction; K21.9 Gastro-esophageal reflux disease without esophagitis; J44.9 Chronic obstructive pulmonary disease, unspecified; Z88.6 Allergy status to analgesic agent; Z88.5 Allergy status to narcotic agent; Z79.811 Long term (current) use of aromatase inhibitors; Z79.899 Other long term (current) drug therapy
CPT/HCPCS: 70487; 80048; 85025; 85652; 86140; 87428; 96365; 96375; 99284; J0295; J1885; Q9967

== ENCOUNTER → 2023-07-24 | Outpatient (REF) | payer MEDICARE, MEDICAID ==
[~2023-07-24] MED LIST changes: +AMOX875T2 PO; -LOSA100T45 PO; +LOSA100T46 PO
== END ==
LOC: M LAB REF 11:46
PROVIDERS: ATTEND Pediatrics
DX: J02.9 Acute pharyngitis, unspecified (principal)

== ENCOUNTER → 2023-07-25 | Outpatient (REF) | payer MEDICARE, MEDICAID ==
[2023-07-25 18:36] LABS: HEMOGLOBIN A1c 5.4 % (4.0-6.0)
[2023-07-25 18:45] LABS: ALBUMIN 4.2 G/DL (3.2-5.2); ALKALINE PHOSPHATASE 62 U/L (46-116); ALT/SGPT 23 U/L (7.0-40); AST/SGOT 10 U/L (<34); BILIRUBIN,TOTAL 0.5 MG/DL (0.3-1.2); BLOOD UREA NITROGEN 13 MG/DL (9-23); CALCIUM LEVEL 8.8 MG/DL (8.5-10.1); CARBON DIOXIDE LEVEL 29 MMOL/L (20-31); CHLORIDE LEVEL 104 MMOL/L (98-107); CHOLESTEROL LEVEL 131 MG/DL (<200); CHOLESTEROL RISK RATIO 3.75 (<5); CREATININE FOR GFR 0.94 MG/DL (0.70-1.30); GLOMERULAR FILTRATION RATE > 60.0 (>60); GLUCOSE, FASTING 105 MG/DL (60-100); HDL CHOLESTEROL 34.9 MG/DL (>40); LDL CHOLESTEROL 69.1 MG/DL (<100); NON-HDL-C 96.1 MG/DL; POTASSIUM SERUM 4.6 MMOL/L (3.5-5.1); PSA SCREENING 1.44 NG/ML (< 4.00); SODIUM LEVEL 139 MMOL/L (136-145); TOTAL PROTEIN 7.4 G/DL (5.7-8.2); TRIGLYCERIDES LEVEL 135 MG/DL (<150)
== END ==
LOC: M LAB REF 17:34
PROVIDERS: ATTEND Pediatrics
DX: R35.1 Nocturia (principal); E66.9 Obesity, unspecified; Z79.899 Other long term (current) drug therapy; Z12.5 Encounter for screening for malignant neoplasm of prostate
CPT/HCPCS: 80053; 80061; 83036; 84443; G0103

== ENCOUNTER → 2023-08-02 | Outpatient (CLI) | payer MEDICARE, MEDICAID | LOC: M EKG 11:44 | PROVIDERS: ATTEND Pediatrics | DX: R42 Dizziness and giddiness (principal) ==

== ENCOUNTER 2023-08-15 09:05 | Emergency (ER) | payer MEDICARE, MEDICAID ==
[~2023-08-15] VITALS: Ht 190.5 cm; Wt 109.9 kg
[2023-08-15 09:06] VITALS: BP 133/87; TEMP 97.9; O2SAT 96
== END 2023-08-15 10:14 | disposition left against medical advice (07) ==
LOC: M ED 09:05
DX: Z53.21 Procedure and treatment not carried out due to patient leaving prior to being seen by health care provider (principal)

== ENCOUNTER → 2023-08-28 | Outpatient (REF) | payer MEDICARE, MEDICAID ==
[2023-08-28 17:59] LABS: APPEARANCE, URINE CLEAR (CLEAR); BACTERIA, URINE AUTO NEGATIVE (NEGATIVE); BILIRUBIN, URINE AUTO NEGATIVE (NEGATIVE); BLOOD, URINE BLOOD NEGATIVE (NEGATIVE); COLOR, URINE YELLOW (YELLOW); GLUCOSE, URINE (UA) AUTO NEGATIVE (NEGATIVE); KETONE, URINE AUTO NEGATIVE (NEGATIVE); LEUKOCYTE ESTERASE, URINE AUTO NEGATIVE (NEGATIVE); MUCUS, URINE SMALL (NEGATIVE); NITRITE, URINE AUTO NEGATIVE (NEGATIVE); PROTEIN, URINE AUTO NEGATIVE (NEGATIVE); RBC, URINE AUTO 0 /HPF (0-3); SPECIFIC GRAVITY URINE AUTO 1.021 (1.002-1.035); SQUAMOUS EPITHELIAL CELL UR AU 0 /HPF (0-6); UROBILINOGEN, URINE AUTO 0.2 mg/dL (0.0-2.0); WBC, URINE AUTO 1 /HPF (0-3)
== END ==
LOC: M LABSMT 15:56
PROVIDERS: ATTEND Urology
DX: R39.9 Unspecified symptoms and signs involving the genitourinary system (principal)

== ENCOUNTER 2024-10-02 22:50 | Emergency (ER) | payer MEDICARE, MEDICAID ==
[~2024-10-02] VITALS: Ht 190.5 cm; Wt 107.3 kg
[~2024-10-02 22:50] MED LIST changes: -ADV250INH INH; +ADVA1AER9 INH; +GABA-1172 PO; -GABA-282 PO
[2024-10-02 22:52] VITALS: BP 159/89; TEMP 98.4; O2SAT 100
== END 2024-10-03 00:44 | disposition left against medical advice (07) ==
LOC: M ED 22:50
DX: Z53.21 Procedure and treatment not carried out due to patient leaving prior to being seen by health care provider (principal)

== ENCOUNTER → 2024-10-22 | Outpatient (CLI) | payer MEDICARE, MEDICAID ==
[2024-10-22 10:58] LABS: CREATININE, URINE 143.9 MG/DL
[2024-10-22 10:59] LABS: BLOOD UREA NITROGEN 14 MG/DL (9-23); CALCIUM LEVEL 9.1 MG/DL (8.5-10.1); CARBON DIOXIDE LEVEL 28 MMOL/L (20-31); CHLORIDE LEVEL 105 MMOL/L (98-107); CHOLESTEROL LEVEL 151 MG/DL (<200); CHOLESTEROL RISK RATIO 3.36 (<5); CREATININE FOR GFR 0.97 MG/DL (0.70-1.30); GLOMERULAR FILTRATION RATE > 90.0 (>60); GLUCOSE, FASTING 86 MG/DL (60-100); HDL CHOLESTEROL 44.9 MG/DL (>40); LDL CHOLESTEROL 85.7 MG/DL (<100); MALB URINE SIEMENS < 3.0 MG/L; NON-HDL-C 106.1 MG/DL; POTASSIUM SERUM 4.1 MMOL/L (3.5-5.1); SODIUM LEVEL 140 MMOL/L (136-145); TRIGLYCERIDES LEVEL 102 MG/DL (<150)
[2024-10-22 11:01] LABS: THYROID STIMULATING HORMONE 1.993 uIU/ML (0.55-4.78)
[2024-10-22 11:27] LABS: HIV 1&2 SCREEN NEGATIVE (NEGATIVE)
[2024-10-22 13:15] LABS: Trichomonas vaginalis (AMP) NOT DETECTED (NEGATIVE)
[2024-10-22 13:39] LABS: GC DNA AMPLIFICATION NEGATIVE (NEGATIVE)
[2024-10-23 10:16] LABS: HCV RNA QUANTITATION <15 NOT DETECTED IU/mL (NOT DETECTED); HCV RNA log10 <1.18 NOT DETECTED Log IU/mL (NOT DETECTED)
== END ==
LOC: M LAB 09:04
PROVIDERS: ATTEND Pediatrics
DX: I10 Essential (primary) hypertension (principal); Z11.3 Encounter for screening for infections with a predominantly sexual mode of transmission

== ENCOUNTER → 2025-01-21 | Outpatient (REF) | payer MEDICARE, MEDICAID ==
[2025-01-21 18:14] LABS: Trichomonas vaginalis (AMP) NOT DETECTED (NEGATIVE)
[2025-01-21 18:38] LABS: GC DNA AMPLIFICATION NEGATIVE (NEGATIVE)
== END ==
LOC: M LAB REF 16:49
PROVIDERS: ATTEND Physician Assistant
DX: Z20.2 Contact with and (suspected) exposure to infections with a predominantly sexual mode of transmission (principal); Z11.3 Encounter for screening for infections with a predominantly sexual mode of transmission; Z72.89 Other problems related to lifestyle

== ENCOUNTER → 2025-02-13 | Outpatient (CLI) | payer MEDICARE, MEDICAID | LOC: M RAD 13:27 | PROVIDERS: ATTEND Family Medicine Addiction Medicine | DX: M54.9 Dorsalgia, unspecified (principal); Z53.9 Procedure and treatment not carried out, unspecified reason ==